=== PATIENT | female | born 1985 | race Hispanic/Latino ===

== ENCOUNTER 2023-06-09 22:26 | Emergency (ER) | payer SELFPAY ==
[2023-06-10] MEDS ORDERED: Acetaminophen 500 MG TAB ONE (00:20)
[2023-06-10 01:18] LABS: #Basophils 0.1 10x3/uL (0.0-0.2); #Eosinphils 0.1 10x3/uL (0.0-0.5); #Monocytes 0.7 10x3/uL (0.0-1.1); #Neutrophils 4.7 10x3/uL (1.5-8.4); %Basophils 0.5 % (0.0-2.0); %Eosinophils 1.1 % (0.0-6.0); %Lymphocytes 39.2 % (18.0-47.0); %Monocytes 7.5 % (0.0-10.0); %Neutrophils 51.5 % (40.0-75.0); Hematocrit 39.1 % (34.9-44.5); Hemoglobin 12.9 g/dL (12.0-15.5); Mean Corpuscular Hemoglobin 28.3 pg (27.0-33.0); Mean Corpuscular Volume 85.7 fl (81.6-98.3); Mean Platelet Volume 10.4 fl (7.4-10.4); Platelet Count 302 10x3/uL (150-450); RBC Distribution Width 13.8 % (11.5-14.5); Red Blood Cell (RBC) Count 4.56 10x6/uL (3.90-5.03); White Blood Cell (WBC) Count 9.2 10x3/uL (3.5-10.5)
[2023-06-10 01:27] LABS: BHCG - Serum POSITIVE (NEGATIVE)
[2023-06-10 01:28] LABS: Pregs Control Background? CLEAR/WHITE (CLR/WHITE); Pregs Control Bar Appear? YES (CONTROL BAR)
[2023-06-10 01:34] LABS: ALT (SGPT) 16 U/L (8-55); AST (SGOT) 23 U/L (5-34); Albumin 4.6 g/dL (3.5-5.0); Alkaline Phosphatase 88 U/L (40-110); Anion Gap 12 mmol/L (10-20); BUN (Urea Nitrogen) 8 mg/dL (7.0-18.7); Bilirubin, Total 0.3 mg/dL (0.2-1.2); Calc. Creatinine Clearance 0 mL/min (70-130); Calcium 9.4 mg/dL (7.8-10.44); Carbon Dioxide 23 mmol/L (22-29); Chloride 104 mmol/L (98-107); Estimated GFR 114; Globulin 3.2 g/dL (2.4-3.5); Glucose 99 mg/dL (70-105); Potassium 3.4 mmol/L (3.5-5.1); Protein, Total 7.8 g/dL (6.0-8.3); Sodium 136 mmol/L (136-145)
[2023-06-10] MEDS ORDERED: Ketorolac Tromethamine 30 MG/ML VIAL ONE (03:37)
== END 2023-06-10 03:51 | disposition home or self-care (01) ==
LOC: CSHERS 22:26
DX: O26.91 Pregnancy related conditions, unspecified, first trimester (principal); O26.891 Other specified pregnancy related conditions, first trimester; F17.200 Nicotine dependence, unspecified, uncomplicated; Z3A.01 Less than 8 weeks gestation of pregnancy
CPT/HCPCS: 76801; 80053; 84702; 84703; 85025; 96372; J1885

== ENCOUNTER 2024-03-07 12:58 | Emergency (ER) | payer SELFPAY ==
[2024-03-07] MEDS ORDERED: Acetaminophen 500 MG TAB ONE (13:40)
[2024-03-07 13:41] LABS: #Basophils 0.02 10x3/uL (0.0-0.2); #Eosinphils 0.08 10x3/uL (0.0-0.5); #Monocytes 0.51 10x3/uL (0.0-1.1); #Neutrophils 4.59 10x3/uL (1.5-8.4); %Basophils 0.3 % (0.0-2.0); %Eosinophils 1.1 % (0.0-6.0); %Lymphocytes 27.3 % (18.0-47.0); %Monocytes 7.1 % (0.0-10.0); %Neutrophils 63.5 % (40.0-75.0); Hematocrit 37.2 % (34.9-44.5); Hemoglobin 12.3 g/dL (12.0-15.5); Mean Corpuscular HGB CONC 33.1 g/dL (32.0-36.0); Mean Corpuscular Hemoglobin 27.3 pg (27.0-33.0); Mean Corpuscular Volume 82.5 fL (81.6-98.3); Mean Platelet Volume 10.9 fL (7.4-10.4); Platelet Count 307 10x3/uL (150-450); RBC Distribution Width 15.7 % (11.5-14.5); Red Blood Cell (RBC) Count 4.51 10x6/uL (3.90-5.03); White Blood Cell (WBC) Count 7.2 10x3/uL (3.5-10.5)
[2024-03-07 14:05] LABS: Bilirubin Neg (Negative); Blood, Urine 10 (Negative); Clarity Clear (Clear); Glucose, Urine (Dipstick) Normal (Negative); Ketone, Urine Negative (Negative); Leukocyte Negative (Negative); Nitrite Negative (Negative); Protein, Urine (Dipstick) 15 mg/dl (Neg-Trace); Specific Gravity, Urine 1.015 (1.005-1.030); pH, Urine 6.5 (5.0-9.0)
[2024-03-07 14:21] LABS: ALT (SGPT) 14 U/L (8-55); AST (SGOT) 19 U/L (5-34); Albumin 3.9 g/dL (3.5-5.0); Alkaline Phosphatase 82 U/L (40-110); Anion Gap 14 mmol/L (10-20); BUN (Urea Nitrogen) 6 mg/dL (7.0-18.7); Bilirubin, Total 0.3 mg/dL (0.2-1.2); Calc. Creatinine Clearance 0 mL/min (70-130); Calcium 9.1 mg/dL (7.8-10.44); Carbon Dioxide 21 mmol/L (22-29); Chloride 106 mmol/L (98-107); Estimated GFR 116; Globulin 3.4 g/dL (2.4-3.5); Glucose 106 mg/dL (70-105); Potassium 3.5 mmol/L (3.5-5.1); Protein, Total 7.3 g/dL (6.0-8.3); Sodium 137 mmol/L (136-145)
[2024-03-07 15:15] LABS: CAUTI Indications for Culture Pelvic or flank pain; RBC/HPF 0-3 HPF (0-3); WBC/HPF 0-3 HPF (0-3)
[2024-03-07 15:16] LABS: Bacteria/HPF 2+ HPF (None Seen); Mucous/LPF 1+ LPF (<2+); Renal Epithelial 0-3 HPF (None Seen); Transitional Epithelial 0-3 HPF (None Seen)
[2024-03-07 15:17] LABS: Urine Culture Reflex No No
== END 2024-03-07 14:48 | disposition home or self-care (01) ==
LOC: CSHERS 12:58
DX: O20.9 Hemorrhage in early pregnancy, unspecified (principal); F17.200 Nicotine dependence, unspecified, uncomplicated; Z3A.08 8 weeks gestation of pregnancy
CPT/HCPCS: 76815; 80053; 81001; 84702; 85025; 86900; 86901

== ENCOUNTER 2024-05-24 21:58 | Emergency (ER) | payer SELFPAY ==
[2024-05-24 22:37] LABS: Bilirubin Neg (Negative); Blood, Urine Negative (Negative); Clarity Clear (Clear); Glucose, Urine (Dipstick) Normal (Negative); Ketone, Urine Negative (Negative); Leukocyte 25 (Negative); Nitrite Negative (Negative); Protein, Urine (Dipstick) Negative (Neg-Trace); Specific Gravity, Urine 1.015 (1.005-1.030); Urobilinogen Normal mg/dL (Less than 2)
[2024-05-24 23:00] LABS: Bacteria/HPF 2+ HPF (None Seen); CAUTI Indications for Culture Dysuria,urgency,freq; RBC/HPF 0-3 HPF (0-3); Squamous Epithelial 0-3 HPF (0-3); WBC/HPF 0-3 HPF (0-3)
[2024-05-24 23:01] LABS: Urine Culture Reflex No No
== END 2024-05-24 23:42 | disposition home or self-care (01) ==
LOC: CSHERS 21:58
DX: O23.42 Unspecified infection of urinary tract in pregnancy, second trimester (principal); N39.0 Urinary tract infection, site not specified; O99.891 Other specified diseases and conditions complicating pregnancy; R10.2 Pelvic and perineal pain; Z3A.18 18 weeks gestation of pregnancy
CPT/HCPCS: 81001; 99284

== ENCOUNTER 2024-08-10 10:25 | Emergency (ER) | payer MEDICAID, SELFPAY ==
[2024-08-10] MEDS ORDERED: Acetaminophen 500 MG TAB ONE (10:45)
== END 2024-08-10 10:58 | disposition home or self-care (01) ==
LOC: CSHERS 10:25
DX: O99.891 Other specified diseases and conditions complicating pregnancy (principal); R10.30 Lower abdominal pain, unspecified; M54.50 Low back pain, unspecified; Z55.0 Illiteracy and low-level literacy; Z3A.36 36 weeks gestation of pregnancy
CPT/HCPCS: 99284

== ENCOUNTER 2024-08-10 11:03 | Day surgery (SDC) | payer MEDICAID ==
[2024-08-10] MEDS ORDERED: hydrALAZINE 20 MG/ML VIAL SLOW IVP PRN (11:31)
[2024-08-10] MEDS: Cyclobenzaprine 10 MG TAB PO SCH (12:54)
== END 2024-08-10 15:15 | disposition home or self-care (01) ==
LOC: CSHLD/OP 11:03
PROVIDERS: ATTEND Obstetrics & Gynecology
DX: O9A.213 Injury, poisoning and certain other consequences of external causes complicating pregnancy, third trimester (principal); R10.30 Lower abdominal pain, unspecified; O99.213 Obesity complicating pregnancy, third trimester; O09.43 Supervision of pregnancy with grand multiparity, third trimester; O09.523 Supervision of elderly multigravida, third trimester; Z3A.30 30 weeks gestation of pregnancy; Z87.59 Personal history of other complications of pregnancy, childbirth and the puerperium; Z87.42 Personal history of other diseases of the female genital tract; V49.50XA Passenger injured in collision with unspecified motor vehicles in traffic accident, initial encounter
CPT/HCPCS: 76819; 96360; 99284

== ENCOUNTER 2024-08-30 20:32 | Day surgery (SDC) | payer MEDICAID, SELFPAY ==
[2024-08-30 20:48] VITALS: BMI 32.4
[2024-08-30] MEDS ORDERED: hydrALAZINE 20 MG/ML VIAL SLOW IVP PRN (21:08)
[2024-08-30 21:43] LABS: Bilirubin Neg (Negative); Blood, Urine Negative (Negative); Clarity Clear (Clear); Glucose, Urine (Dipstick) Normal (Negative); Ketone, Urine Negative (Negative); Leukocyte 25 (Negative); Nitrite Negative (Negative); Protein, Urine (Dipstick) Negative (Neg-Trace); Specific Gravity, Urine 1.005 (1.005-1.030); Urobilinogen Normal mg/dL (Less than 2); pH, Urine 6.5 (5.0-9.0)
[2024-08-30 22:06] LABS: FFN Internal QC Analyzer PASS (PASS); FFN Internal QC Cassette PASS (PASS); Fetal Fibronectin Negative (Negative)
[2024-08-30 22:24] LABS: Bacteria/HPF 2+ HPF (None Seen); CAUTI Indications for Culture Pregnancy; RBC/HPF None Seen HPF (0-3); Squamous Epithelial 0-3 HPF (0-3); WBC/HPF 0-3 HPF (0-3)
[2024-08-30 22:25] LABS: Urine Culture Reflex Yes Yes
[2024-08-30] MEDS: Acetaminophen 500 MG TAB PO SCH (23:11)
[2024-08-30] MEDS: Cephalexin 500 MG CAP PO SCH (23:12)
== END 2024-08-30 23:15 | disposition home or self-care (01) ==
LOC: CSHLD/OP 20:32
PROVIDERS: ATTEND Family Medicine
DX: O99.891 Other specified diseases and conditions complicating pregnancy (principal); R10.30 Lower abdominal pain, unspecified; O23.43 Unspecified infection of urinary tract in pregnancy, third trimester; R30.0 Dysuria; O23.593 Infection of other part of genital tract in pregnancy, third trimester; N89.8 Other specified noninflammatory disorders of vagina; Z90.49 Acquired absence of other specified parts of digestive tract; Z3A.33 33 weeks gestation of pregnancy
CPT/HCPCS: 76817; 81001; 82731; 87086; 87480; 87510; 87660; 99285

== ENCOUNTER 2024-10-07 03:57 | Day surgery (SDC) | payer MEDICAID, OTHER ==
[2024-10-07 04:24] VITALS: BMI 31.4
[2024-10-07] MEDS ORDERED: hydrALAZINE 20 MG/ML VIAL SLOW IVP PRN (05:06)
[2024-10-07 05:43] LABS: #Basophils 0.02 10x3/uL (0.0-0.2); #Eosinophils 0.06 10x3/uL (0.0-0.5); #Monocytes 0.57 10x3/uL (0.0-1.1); %Basophils 0.3 % (0.0-2.0); %Eosinophils 0.8 % (0.0-6.0); %Lymphocytes 25.3 % (18.0-47.0); %Monocytes 7.2 % (0.0-10.0); %Neutrophils 65.6 % (40.0-75.0); Hematocrit 29.7 % (34.9-44.5); Hemoglobin 9.7 g/dL (12.0-15.5); Mean Corpuscular HGB CONC 32.7 g/dL (32.0-36.0); Mean Corpuscular Hemoglobin 25.1 pg (27.0-33.0); Mean Corpuscular Volume 76.7 fL (81.6-98.3); Mean Platelet Volume 12.4 fL (7.4-10.4); Platelet Count 200 10x3/uL (150-450); RBC Distribution Width 17.1 % (11.5-14.5); Red Blood Cell (RBC) Count 3.87 10x6/uL (3.90-5.03); White Blood Cell (WBC) Count 7.9 10x3/uL (3.5-10.5)
[2024-10-07 06:06] LABS: HIV (1/2) Antibody/Antigen Non-Reactive (NonReactive); HIV 1/2 INDEX 0.07 S/CO (<1.00)
[2024-10-07 06:08] LABS: Syphilis Antibody Nonreactive (Nonreactive); Syphilis Antibody Index 0.07 S/CO (<1.00 Non-Reactive)
[2024-10-08 15:06] LABS: Group B Streptococcus by PCR Not Detected (NotDetected)
== END 2024-10-07 06:33 | disposition home or self-care (01) ==
LOC: CSHLD/OP 03:57
PROVIDERS: ATTEND Family Medicine
DX: O47.1 False labor at or after 37 completed weeks of gestation (principal); O09.43 Supervision of pregnancy with grand multiparity, third trimester; O09.523 Supervision of elderly multigravida, third trimester; O99.891 Other specified diseases and conditions complicating pregnancy; R73.03 Prediabetes; O09.33 Supervision of pregnancy with insufficient antenatal care, third trimester; Z90.49 Acquired absence of other specified parts of digestive tract; Z98.890 Other specified postprocedural states; Z3A.38 38 weeks gestation of pregnancy
CPT/HCPCS: 85025; 86780; 87389; 87653; 99283

== ENCOUNTER 2024-10-17 05:50 | Inpatient (IN) | payer MEDICAID, SELFPAY ==
[2024-10-17 06:21] VITALS: BMI 30.7
[2024-10-17] MEDS ORDERED: hydrALAZINE 20 MG/ML VIAL SLOW IVP PRN ×2 (07:38→16:40)
[2024-10-17] MEDS ORDERED: Ondansetron PF 4 MG/2 ML Vial IVP PRN ×3 (07:38→16:40)
[2024-10-17] MEDS ORDERED: Promethazine HCl 25 MG/ML VIAL IM PRN ×3 (07:38→16:40)
[2024-10-17] MEDS ORDERED: Lidocaine 1% (PF) 30 ML VIAL SC PRN (07:38)
[2024-10-17] MEDS ORDERED: Oxytocin 30 units/NS 500 ML 500 ML IV SCH ×2 (07:45→16:45)
[2024-10-17 08:00] LABS: Hematocrit 29.4 % (34.9-44.5); Hemoglobin 8.9 g/dL (12.0-15.5); Mean Corpuscular HGB CONC 30.3 g/dL (32.0-36.0); Mean Corpuscular Hemoglobin 22.9 pg (27.0-33.0); Mean Corpuscular Volume 75.8 fL (81.6-98.3); Platelet Count 195 10x3/uL (150-450); RBC Distribution Width 17.8 % (11.5-14.5); Red Blood Cell (RBC) Count 3.88 10x6/uL (3.90-5.03); White Blood Cell (WBC) Count 6.68 10x3/uL (3.5-10.5)
[2024-10-17] MEDS: Lactated Ringer's 1,000 ML IV SCH (08:11)
[2024-10-17] MEDS: Oxytocin 30 units/NS 500 ML 500 ML IV SCH (08:11)
[2024-10-17 08:28] LABS: HBsAg Index 0.24 S/CO (0-0.99); HIV (1/2) Antibody/Antigen Non-Reactive (NonReactive); HIV 1/2 INDEX 0.06 S/CO (<1.00); Hep B Surf Ag - L&D Non-Reactive S/CO (NonReactive)
[2024-10-17 08:29] LABS: Syphilis Antibody Nonreactive (Nonreactive); Syphilis Antibody Index 0.06 S/CO (<1.00 Non-Reactive)
[2024-10-17] MEDS: fentaNYL/Ropivacaine Epidural 100 ML ONE (09:13)
[2024-10-17] MEDS ORDERED: Lactated Ringer's 500 ML IV PRN (09:40)
[2024-10-17] MEDS ORDERED: ePHEDrine Sulfate 50 MG/10 ML VIAL SLOW IVP PRN (09:40)
[2024-10-17] MEDS ORDERED: Naloxone HCl 0.4 mg/ml Vial IVP PRN ×2 (09:40)
[2024-10-17] MEDS ORDERED: diphenhydrAMINE 50 MG/ML VIAL IVP PRN (09:40)
[2024-10-17] MEDS ORDERED: Moisturizing Cream (Eucerin) 113 GM JAR TOP PRN (09:40)
[2024-10-17] MEDS ORDERED: Communication Order-Pharmacy FS SCH (09:45)
[2024-10-17] MEDS ORDERED: fentaNYL 2 mcg/Ropivacaine 0.2% Epidural 100 ML CADD EPIDURAL SCH (09:45)
[2024-10-17] MEDS ORDERED: Misoprostol 200 MCG TAB VAG PRN (16:40)
[2024-10-17] MEDS ORDERED: Bisacodyl 10 MG SUPP PR PRN (16:40)
[2024-10-17] MEDS ORDERED: Milk Of Magnesia 30 ML UDCUP PO PRN (16:40)
[2024-10-17] MEDS ORDERED: Lanolin Ointment 7 GM TUBE TOP PRN (16:40)
[2024-10-17] MEDS ORDERED: Methylergonovine 0.2 MG/ML VIAL IM PRN (16:40)
[2024-10-17] MEDS ORDERED: Benzocaine-Menthol 82.5 ML CAN TOP PRN (16:40)
[2024-10-17] MEDS ORDERED: Preparation H Ointment 28 GM TUBE PR PRN (16:40)
[2024-10-17] MEDS: Methylergonovine 0.2 MG/ML VIAL ONE (16:43)
[2024-10-17] MEDS: Acetaminophen 325 MG TAB PO PRN (16:43)
[2024-10-17] MEDS ORDERED: Boostrix 0.5 ML (Tdap) VIAL (>/=7 yrs of age) IM ONE (21:00)
[2024-10-17] MEDS: Ibuprofen 800 MG TAB PO SCH (21:42)
[2024-10-17] MEDS: Docusate 100 MG CAP PO SCH (22:06)
[2024-10-17] MEDS: Carboprost 250 MCG/ML AMP ONE (22:15)
[2024-10-17] MEDS: Misoprostol 200 MCG TAB ONE (22:15)
[2024-10-17] MEDS: Ferrous Sulfate 325 MG TAB PO SCH (22:15)
[2024-10-17] MEDS: Tranexamic Acid 1,000 MG/10 ML VIAL ONE (22:16)
[2024-10-18 05:13] LABS: #Basophils Less than 0.03 10x3/uL (0.0-0.2); #Eosinophils 0.05 10x3/uL (0.0-0.5); #Monocytes 0.76 10x3/uL (0.0-1.1); #Neutrophils 8.69 10x3/uL (1.5-8.4); %Basophils 0.1 % (0.0-2.0); %Eosinophils 0.4 % (0.0-6.0); %Lymphocytes 21.4 % (18.0-47.0); %Monocytes 6.2 % (0.0-10.0); %Neutrophils 70.9 % (40.0-75.0); Hematocrit 26.4 % (34.9-44.5); Mean Corpuscular HGB CONC 30.3 g/dL (32.0-36.0); Mean Corpuscular Volume 75.9 fL (81.6-98.3); Platelet Count 173 10x3/uL (150-450); RBC Distribution Width 17.8 % (11.5-14.5); Red Blood Cell (RBC) Count 3.48 10x6/uL (3.90-5.03); White Blood Cell (WBC) Count 12.25 10x3/uL (3.5-10.5)
[2024-10-18] MEDS: Prenatal Vitamin 1 TAB PO SCH (07:57)
[2024-10-18 16:33] VITALS: BP 98/54; TEMP 98
== END 2024-10-18 19:15 | disposition home or self-care (01) | DRG 807 ==
LOC: CSHLD 05:50 → CSHPP 21:48
PROVIDERS: ADMIT Family Medicine; ATTEND Family Medicine
PROC: 10E0XZZ Delivery of Products of Conception, External Approach (ICD-10-PCS; principal; 2024-10-17)
DX: O99.892 Other specified diseases and conditions complicating childbirth (principal); Z37.0 Single live birth; R73.03 Prediabetes; O34.13 Maternal care for benign tumor of corpus uteri, third trimester; D25.9 Leiomyoma of uterus, unspecified; O99.02 Anemia complicating childbirth; Z3A.39 39 weeks gestation of pregnancy; O09.523 Supervision of elderly multigravida, third trimester
CPT/HCPCS: 36415; 51702; 85025; 85027; 86780; 86850; 86900; 86901; 87340; 87389; J2210; J2590; J7120